=== PATIENT | female | born 1995 | race Two or more races ===

== ENCOUNTER 2024-09-05 01:16 | Emergency (ER) | payer OTHER, SELFPAY ==
[2024-09-05 01:45] VITALS: BP 130/89; PULSE 102; RESP 19; TEMP 36.8; O2SAT 98
[2024-09-05 02:28] LABS: Basophils % (Auto) 0 % (0-2.5); Eosinophils # (Auto) 0.2 Thou/mm3 (0.0-0.5); Eosinophils % (Auto) 2 % (0-10); Hematocrit 39.6 % (36.0-46.0); Hemoglobin 13.8 g/dL (12.0-16.0); Immature Granulocytes % (Auto) 0 % (0-0); Immature Granulocytes Auto 0.03 Thou/mm3 (0.00-0.00); Lymphocytes # (Auto) 3.5 Thou/mm3 (1.0-4.8); Lymphocytes % (Auto) 42 % (10-50); Mean Corpuscular HGB Conc 34.8 g/dl (31.0-37.0); Mean Corpuscular Hemoglobin 28.9 pg (25.0-35.0); Mean Corpuscular Volume 83 fL (80-100); Monocytes # (Auto) 0.7 Thou/mm3 (0.0-0.8); Monocytes % (Auto) 8 % (0-12); Neutrophils # (Auto) 3.9 Thou/mm3 (1.8-7.7); Neutrophils % (Auto) 47 % (37-80); Nucleated Red Blood Cell % 0 /100 WBC (0); Platelet Count 243 Thou/mm3 (140-440); RDW Standard Deviation 38.4 fL (36.4-46.3); Red Blood Count 4.78 Miln/mm3 (4.00-5.20); White Blood Count 8.3 Thou/mm3 (3.6-11.0)
[2024-09-05 02:55] LABS: Alanine Aminotransferase 24 U/L (10-49); Albumin, Serum 4.4 gm/dL (3.5-5.0); Albumin/Globulin Ratio 1.6 (1.2-2.2); Alkaline Phosphatase 97 U/L (46-116); Anion Gap 7 (7-16); Aspartate Amino Transferase 18 U/L (0-34); BUN/Creatinine Ratio 13 Ratio (12-20); Beta HCG,Quantitative < 1 mIU/mL (<5.0); Bilirubin,Total 0.3 mg/dL (0.3-1.2); Blood Urea Nitrogen 10 mg/dL (9-23); Calcium 9.5 mg/dL (8.3-10.6); Calcium (Corrected) 9.5 mg/dL (8.5-10.1); Carbon Dioxide 25.9 mMol/L (20.0-31.0); Chloride 108 mMol/L (98-107); Creatinine (Component) 0.8 mg/dL (0.6-1.3); Globulin 2.8 gm/dL (2.3-3.5); Glucose 104 mg/dL (74-106); Lipase 55 U/L (12-53); Osmolality,Calculated 280 (275-295); Potassium 3.8 mMol/L (3.4-5.1); Sodium 141 mMol/L (136-145); Total Protein 7.2 gm/dL (5.7-8.2); eGFR > 60 See Note
[2024-09-05] MEDS: ONDANSETRON ODT 4 MG TABRAP PO (03:30)
[2024-09-05 04:22] VITALS: BP 130/84; PULSE 100; RESP 20; TEMP 36.7; O2SAT 97
--- NOTE | 2024-09-05 05:35 | PD.EDNV ---
Nausea/Vomit./Diarrhea-RME/HPI General Chief complaint: Abdominal Pain Stated complaint: NAUSEA,ABD PAIN, LOWER BACK PAIN Time Seen by Provider: 09/05/24 01:52 Arrival date/time: 09/05/24 01:16 29F with no significant PMH presents to ED with several days of N/V, gen ab pain/cramping that radiates to back, and non-bloody diarrhea. Patient denies vaginal bleeding and dysuria. Possible + test at home. Limitations: no limitations Related Data Previous Rx's ?Medication ?Instructions ?Recorded ondansetron 4 mg disintegrating 4 mg PO Q8H PRN nausea and 09/05/24 tablet vomiting #30 tabs Allergies Allergy/AdvReac Type Severity Reaction Status Date / Time No Known Allergies Allergy Verified 09/05/24 01:21 Review of Systems Review of Systems Systems Reviewed: All systems reviewed, normal except as documented Constitutional Constitutional: Reports system reviewed and no additional complaints, except as documented, Denies fever(s) and Denies headache(s) ENT Ears, Nose, Mouth, and Throat: Denies disequilibrium and Denies headache(s) Cardiovascular Cardiovascular: Reports system reviewed and no additional complaints, except as documented, Denies chest pain and Denies dyspnea Respiratory Respiratory: Reports system reviewed and no additional complaints, except as documented, Denies cough and Denies dyspnea Gastrointestinal Gastrointestinal: Reports system reviewed and no additional complaints, except as documented, Reports as per HPI, Reports abdominal pain, Reports diarrhea, Reports nausea and Reports vomiting Musculoskeletal Musculoskeletal: Reports as per HPI and Reports back pain Neurologic Neurologic: Reports system reviewed and no additional complaints, except as documented, Denies confusion, Denies disequilibrium and Denies headache(s) Psychiatric Psychiatric: Denies confusion Past Medical History Past Medical History NEUROLOGIC: Negative Neurological Disorders or Seizures CARDIAC: Negative Cardiac Disorders, Congestive Heart Failure, Edema or Cellulitis RESPIRATORY: Negative Chronic Obstructive Pulmonary Disease (COPD), Pneumonia, Tuberculosis or Sleep Apnea GASTROINTESTINAL: Positive Gastrointestinal Disorders and 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); Negative Hepatitis GENITOURINARY: Negative Genitourinary Disorders or Renal Disease REPRODUCTIVE: Negative Previous Pregnancies MUSCULOSKELETAL: Negative Musculoskeletal Disorders ENDOCRINE: Negative Endocrine Disorders, Diabetes Mellitus Type 1 or Diabetes Mellitus Type 2 HEMATOLOGIC: Negative Blood Disorders OTHER HISTORY: Negative Hospitalization, Autoimmune Disease, Shingles, Falls, Blood Transfusions, Anesthesia Reactions, Chemotherapy, Radiation Therapy, MRSA, Chicken Pox, Measles, Mumps or Cancer Family History FAMILY HISTORY: Positive Family Cardiac Disorders (MOTHER (HTN)), Family Gastrointestinal Problems (MOTHER (GALLBLADDER NO SURG)) and Family Surgery (MOTHER); Negative Family Psychiatric Problems, Family Respiratory Disorders, Family Cancer or Family Anesthesia Reaction Surgical History SURGICAL: Negative Pacemaker Social History SMOKING STATUS: Never smoker ED Exam General Limitations: Present no limitations General appearance: Present alert and in no apparent distress Head Head exam: Present atraumatic Eye Eye exam: Present normal appearance, PERRL and EOMI ENT ENT exam: Present normal exam, normal oropharynx and mucous membranes moist Neck Neck exam: Present normal inspection, full ROM and trachea midline Chest Chest inspection: Present normal inspection and symmetric chest wall rise Respiratory Respiratory exam: Present normal lung sounds bilaterally Cardiovascular Cardiovascular exam: Present regular rate, normal rhythm and normal heart sounds Abdominal Exam Abdominal exam: Present soft and normal bowel sounds Extremities Exam Extremities exam: Present normal inspection and full ROM Back Exam Back exam: Present normal inspection and full ROM Neurological Exam Neurological exam: Present alert, oriented X3 and CN II-XII intact Psychiatric Psychiatric exam: Present normal affect and normal mood Skin Skin exam: Present warm, dry, intact and normal color Course Quality Measures none Orders Category Date Time Status Beta HCG,Quantitative Stat Lab 09/05/24 02:18 Completed CBC Stat Lab 09/05/24 02:18 Completed CMP [Comprehensive Metabolic Panel] Stat Lab 09/05/24 02:18 Completed Lipase Stat Lab 09/05/24 02:18 Completed Ondansetron Odt [Zofran Odt] Med 09/05/24 02:59 Discontinued 4 mg PO X1 ONE Vital Signs Vital signs: Vital Signs Temperature 98.2 F 09/05/24 01:45 Pulse Rate 102 H 09/05/24 01:45 Respiratory Rate 19 09/05/24 01:45 Blood Pressure 130/89 H 09/05/24 01:45 Pulse Oximetry (%) 98 09/05/24 01:45 Oxygen Delivery Method Room Air 09/05/24 01:45 O2 at 98% on RA and WNLs Nausea/Vomiting/Diarrhea MDM Narrative MDM Narrative:: 29F with no significant PMH presents to ED with several days of N/V, gen ab pain/cramping that radiates to back, and non-bloody diarrhea. Patient denies vaginal bleeding and dysuria. Possible + test at home. Physical exam reveals no flank/ab tenderness. Patient is afebrile, calm, and alert. No leukocytosis. Lipase and CMP unremarkable. PO challenge passed. HCG neg. Likely viral gastroenteritis. Patient data External records reviewed:: [facility] previous records Clinical information provided by:: patient Social determinants that could affect healthcare access:: none Patient has the following chronic illnesses:: none How is presenting disease/condition affected by chronic disease/condition?: no chronic disease Evaluation data The following diagnostics were reviewed and interpreted by me:: lab results Lab and/or radiology exams considered but not ordered:: ordered Interpretation Summary: above Medications / Prescriptions Medications / Prescriptions considered but not ordered:: ordered Medication administrations:: Medication Administration History Discontinued Medications Ondansetron HCl (Ondansetron Odt 4 Mg Tabrap) 4 mg PO X1 ONE; Protocol Stop: 09/05/24 03:00 Last Admin: 09/05/24 03:30 Dose: 4 mg Documented By: CVL above Consultations Consultation(s) initiated? (list below): No Diagnosis Nausea Differential Diagnosis: traveler's diarrhea, food poisoning, gastroenteritis, clostridium difficile infection, drug-induced nausea and vomiting and dehydration Most likely diagnosis given after review of the tests above:: gastroenteritis Admission Indicated Admission indicated?: not indicated Admission Request Was there a request for admission?: No Disposition Plan Disposition Plan: Discharge Discharge Attestation Discharge Attestation: The patient and all family members were given an opportunity to ask questions and understood the discharge instructions. Discharge instructions specifically effects, indications for sooner follow up or return to the emergency department, and the expected course of current diagnosis. Patient condition: Stable Discharge Plan Plan Patient Disposition: HOME (Self Care) Disposition Comment: Stable Prescriptions/Referrals Prescriptions/Med Rec: New ondansetron 4 mg tablet,disintegrating 4 mg PO Q8H PRN (Reason: nausea and vomiting) Qty: 30 0RF Referrals: Yon Roy FNP [Primary Care Provider] - In 1 week Problem List Clinical Impression: Gastroenteritis Patient/Caregiver Discharge Instructions Education Materials: ED Diarrhea, Viral (Adult) Additional Instructions: Please follow-up with PCP within 24-48 hours and return immediately if symptoms worsen. Print Language: Israeli Stand Alone Forms: Work/School Release, Patient Portal Info Letter LUIS/GIL Supervising Physician JAS Supervising Physician: Dr. Jang
== END 2024-09-05 04:34 | disposition home or self-care (01) ==
PROVIDERS: Physician Assistant; Emergency Provider Emergency Medicine; PCP Nurse Practitioner Family
DX: K52.9 Noninfective gastroenteritis and colitis, unspecified (principal)
CPT/HCPCS: 36415; 80053; 83690; 84702; 85025; 99283; Q0162

== ENCOUNTER → 2024-10-12 | Outpatient (CLI) | payer OTHER, SELFPAY ==
--- NOTE | 2024-10-12 09:15 | XR_ITS ---
Examination: Transvaginal ultrasound of the pelvis, complete Technique: Transvaginal sonographic images pelvis performed using ford scale imaging Exam date and time: October 12, 2024 1020 hours INDICATIONS: Irregular menses years. FINDINGS: Uterus 6.1 cm endometrial stripe 0.6 cm No uterine mass or intrauterine gestation Right ovary 3.3 cm arterial flow Left ovary obscured by bowel gas IMPRESSION: No uterine mass or intrauterine gestation.
--- NOTE | 2024-10-12 09:15 | XR_ITS ---
Examination: Pelvic ultrasound, transabdominal, complete Technique: Transabdominal ultrasound of the pelvis performed using grayscale imaging Date and time of exam: October 12, 2024 1012 hours INDICATIONS: Irregular menses several years. FINDINGS: Uterus 6.4 cm endometrial stripe 0.7 cm No uterine mass or intrauterine gestation Right ovary 4.1 cm arterial flow Left ovary 4.3 cm arterial flow 17 mm follicular cyst IMPRESSION: Negative study
== END | disposition home or self-care (01) ==
PROVIDERS: PCP Nurse Practitioner Family; Referring Provider Nurse Practitioner Family; Visit Provider Nurse Practitioner Family
DX: N92.6 Irregular menstruation, unspecified (principal)
CPT/HCPCS: 76830; 76856